=== PATIENT | male | born 1950 | race Caucasian/White ===

== ENCOUNTER 2019-06-08 13:11 | Emergency (ER) | payer MEDICARE, OTHER ==
[~2019-06-08] VITALS: Ht 170.2 cm; Wt 122.5 kg
[~2019-06-08 13:11] MED LIST: ATOR20 PO; CIPR500 PO; CODBUTACEC; MIRT30 PO; TAMS.4ER PO; TOPI50 PO; VERA240ER PO; [UNRECOGNIZED DRUG - REMARK]
[2019-06-08 14:09] LABS: BASOPHILS ABSOLUTE AUTO 0.03 K/mm3 (0.00-0.23); BASOPHILS PERCENT AUTO 0 % (0-2); EOSINOPHILS PERCENT AUTO 0 % (0-6); Hematocrit 46.2 % (37.0-53.0); Hemoglobin 15.4 g/dL (13.5-17.5); IMMATURE GRAN ABSOLUTE AUTO 0.02 K/mm3 (0.00-0.10); IMMATURE GRAN PERCENT AUTO 0 % (0-1); LYMPHOCYTES ABSOLUTE AUTO 0.81 K/mm3 (0.84-5.20); LYMPHOCYTES PERCENT AUTO 12 % (21-46); MONOCYTES ABSOLUTE AUTO 0.18 K/mm3 (0.16-1.47); MONOCYTES PERCENT AUTO 3 % (4-13); Mean Corpuscular HGB 31.6 pg (26.0-34.0); Mean Corpuscular HGB Conc 33.3 g/dL (31.5-36.5); Mean Corpuscular Volume 95 fL (80-100); Mean Platelet Volume 9.7 fL (9.1-12.4); NEUTROPHILS ABSOLUTE AUTO 5.81 K/mm3 (1.96-9.15); NEUTROPHILS PERCENT AUTO 85 % (41-73); Platelet Count 250 K/mm3 (150-400); RDW Coefficient Variation 13.1 % (11.7-14.2); RDW Standard Deviation 45.8 fL (35.1-46.3); Red Blood Cell Count 4.88 M/mm3 (4.30-5.90); White Blood Cell Count 6.85 K/mm3 (4.00-11.30)
[2019-06-08 14:21] LABS: Alanine Aminotransfer (ALT/SGP 22 U/L (12-78); Albumin, Blood 3.9 g/dL (3.4-5.0); Alk Phos 79 U/L (50-136); Anion Gap 7 mmol/L (6-16); Aspartate Aminotrans (AST/SGOT 14 U/L (12-37); Bilirubin, Total 0.3 mg/dL (0.1-1.0); Blood Urea Nitrogen 14 mg/dL (8-24); Bun/Creatinine Ratio 20.7 (12.0-20.0); CO2, Blood 26 mmol/L (21-32); Calcium, Blood 8.7 mg/dL (8.5-10.1); Chloride, Blood 105 mmol/L (98-108); Creatinine, Blood 0.68 mg/dL (0.60-1.20); Globulin, Blood 3.8 g/dL (2.2-4.0); Glomerular Filtration Rate >60 (60-); Glucose, Blood 141 mg/dL (70-99); Potassium, Blood 3.8 mmol/L (3.5-5.5); Sodium, Blood 138 mmol/L (136-145); Total Protein, Blood 7.7 g/dL (6.4-8.2)
[2019-06-08] MEDS ORDERED: LEVO-T150 MCG PO (14:36)
[2019-06-08] MEDS ORDERED: LEVSOD25 PO (14:36)
[2019-06-08] MEDS ORDERED: Percocet 5-3251 EACH PO (17:43)
[2019-06-08] MEDS ORDERED: Zofran4 MG PO (17:43)
== END 2019-06-08 17:58 | disposition home or self-care (01) ==
LOC: ER 13:11
PROVIDERS: Physician Assistant
DX: G44.209 Tension-type headache, unspecified, not intractable (principal); F43.9 Reaction to severe stress, unspecified; Z88.5 Allergy status to narcotic agent; Z79.899 Other long term (current) drug therapy
CPT/HCPCS: 70450; 80053; 85025; 96361; 96374; 96375; 96376; 99284-25; J1170; J1200; J1885; J2765; J3010; J7030

== ENCOUNTER 2019-06-15 19:37 | Emergency (ER) | payer MEDICARE, OTHER ==
[~2019-06-15] VITALS: Ht 177.8 cm; Wt 158.8 kg
[~2019-06-15 19:37] MED LIST changes: +LEVO-T150 MCG PO; +LEVSOD25 PO; +Percocet 5-3251 EACH PO; +Zofran4 MG PO
[2019-06-15 20:32] LABS: BASOPHILS ABSOLUTE AUTO 0.04 K/mm3 (0.00-0.23); BASOPHILS PERCENT AUTO 1 % (0-2); EOSINOPHILS ABSOLUTE AUTO 0.14 K/mm3 (0.00-0.68); EOSINOPHILS PERCENT AUTO 2 % (0-6); Hematocrit 45.7 % (37.0-53.0); Hemoglobin 15.4 g/dL (13.5-17.5); IMMATURE GRAN ABSOLUTE AUTO 0.02 K/mm3 (0.00-0.10); IMMATURE GRAN PERCENT AUTO 0 % (0-1); LYMPHOCYTES PERCENT AUTO 23 % (21-46); MONOCYTES ABSOLUTE AUTO 0.59 K/mm3 (0.16-1.47); MONOCYTES PERCENT AUTO 8 % (4-13); Mean Corpuscular HGB 31.8 pg (26.0-34.0); Mean Corpuscular HGB Conc 33.7 g/dL (31.5-36.5); Mean Corpuscular Volume 94 fL (80-100); Mean Platelet Volume 9.4 fL (9.1-12.4); NEUTROPHILS ABSOLUTE AUTO 5.06 K/mm3 (1.96-9.15); NEUTROPHILS PERCENT AUTO 67 % (41-73); Platelet Count 238 K/mm3 (150-400); RDW Coefficient Variation 12.9 % (11.7-14.2); RDW Standard Deviation 45.1 fL (35.1-46.3); Red Blood Cell Count 4.84 M/mm3 (4.30-5.90); White Blood Cell Count 7.55 K/mm3 (4.00-11.30)
[2019-06-15 20:43] LABS: Anion Gap 5 mmol/L (6-16); Blood Urea Nitrogen 12 mg/dL (8-24); Bun/Creatinine Ratio 18.8 (12.0-20.0); CO2, Blood 28 mmol/L (21-32); Calcium, Blood 8.9 mg/dL (8.5-10.1); Chloride, Blood 105 mmol/L (98-108); Creatinine, Blood 0.64 mg/dL (0.60-1.20); Glomerular Filtration Rate >60 (60-); Glucose, Blood 115 mg/dL (70-99); Potassium, Blood 3.5 mmol/L (3.5-5.5); Sodium, Blood 138 mmol/L (136-145)
[2019-06-15 21:18] LABS: C-REACTIVE PROTEIN, EXT RANGE <0.290 mg/dL (0.000-0.300)
== END 2019-06-15 23:20 | disposition home or self-care (01) ==
LOC: ER 19:37
PROVIDERS: Emergency Medicine
DX: R51 Headache (principal); Z88.5 Allergy status to narcotic agent; Z79.899 Other long term (current) drug therapy
CPT/HCPCS: 36415; 80048; 85025; 85651; 86140; 96374; 96375; 99284-25; J1100; J1200; J1885; J2765; J3010

== ENCOUNTER 2020-11-06 16:29 | Observation (INO) | payer MEDICARE ==
[~2020-11-06] VITALS: Ht 170.2 cm; Wt 116.4 kg
[~2020-11-06 16:29] MED LIST changes: -ATOR20 PO; +ATOR40TA PO
[2020-11-06 17:25] LABS: BASOPHILS ABSOLUTE AUTO 0.04 K/mm3 (0.00-0.23); BASOPHILS PERCENT AUTO 1 % (0-2); EOSINOPHILS ABSOLUTE AUTO 0.04 K/mm3 (0.00-0.68); EOSINOPHILS PERCENT AUTO 1 % (0-6); Hemoglobin 14.9 g/dL (13.5-17.5); IMMATURE GRAN ABSOLUTE AUTO 0.03 K/mm3 (0.00-0.10); IMMATURE GRAN PERCENT AUTO 1 % (0-1); LYMPHOCYTES PERCENT AUTO 27 % (21-46); MONOCYTES ABSOLUTE AUTO 0.37 K/mm3 (0.16-1.47); MONOCYTES PERCENT AUTO 6 % (4-13); Mean Corpuscular HGB 30.9 pg (26.0-34.0); Mean Corpuscular HGB Conc 33.1 g/dL (31.5-36.5); Mean Corpuscular Volume 93 fL (80-100); NEUTROPHILS ABSOLUTE AUTO 4.18 K/mm3 (1.96-9.15); NEUTROPHILS PERCENT AUTO 66 % (41-73); Platelet Count 233 K/mm3 (150-400); RDW Coefficient Variation 12.9 % (11.7-14.2); RDW Standard Deviation 44.4 fL (35.1-46.3); Red Blood Cell Count 4.82 M/mm3 (4.30-5.90); White Blood Cell Count 6.36 K/mm3 (4.00-11.30)
[2020-11-06 17:43] LABS: Ethanol (Alcohol), Blood, Med <3 mg/dL
[2020-11-06 17:44] LABS: Alanine Aminotransfer (ALT/SGP 27 U/L (12-78); Albumin, Blood 4.1 g/dL (3.4-5.0); Albumin/Globulin Ratio 1.2 (0.8-1.8); Alk Phos 71 U/L (50-136); Anion Gap 7 mmol/L (6-16); Aspartate Aminotrans (AST/SGOT 20 U/L (12-37); Bilirubin, Total 0.5 mg/dL (0.1-1.0); Blood Urea Nitrogen 14 mg/dL (8-24); Bun/Creatinine Ratio 21.8 (12.0-20.0); CO2, Blood 26 mmol/L (21-32); Calcium, Blood 8.7 mg/dL (8.5-10.1); Chloride, Blood 106 mmol/L (98-108); Creatinine, Blood 0.64 mg/dL (0.60-1.20); Globulin, Blood 3.3 g/dL (2.2-4.0); Glomerular Filtration Rate >60 (60-); Glucose, Blood 120 mg/dL (70-99); Potassium, Blood 3.8 mmol/L (3.5-5.5); Sodium, Blood 139 mmol/L (136-145); Total Protein, Blood 7.4 g/dL (6.4-8.2)
[2020-11-06 21:08] LABS: Source, Urine Catheter
[2020-11-06 21:09] LABS: Bilirubin, Urine Neg (Neg); Blood, Urine 1+ (Neg); Glucose Qualitative, Urine Neg (Neg); Ketones, Urine 2+ (Neg); Leukocyte Esterase, Urine Neg (Neg); Nitrite, Urine Neg (Neg); Protein, Urine Neg (Neg); Specific Gravity, Urine 1.015 (1.003-1.022); Urobilinogen, Urine NORM (Normal)
[2020-11-06 21:15] LABS: Appearance, Urine Hazy (Clear); Color, Urine Yellow (P-Yellow)
[2020-11-06 21:16] LABS: Amorphous Heavy (0-Heavy); Bacteria Not Seen /hpf; Red Blood Cells, Urine Not Seen /hpf (0-2); Squamous Epithelial Cells Not Seen /hpf (Few); White Blood Cells, Urine Not Seen /hpf (0-5)
[2020-11-06 21:20] LABS: U Amphetamine Screen Not Detected; U Barbituate Screen DETECTED; U Benzodiazapine Screen Not Detected; U Buprenorphine Screen Not Detected; U Cannabinoids Screen Not Detected; U Cocaine Screen Not Detected; U Methadone Screen Not Detected; U Methamphetamine Screen Not Detected; U Opiates Screen DETECTED; U Oxycodone Screen Not Detected; U Phencyclidine Screen Not Detected; U Propoxyphene Screen Not Detected
[2020-11-06 21:49] LABS: Influenza A, PCR NEGATIVE (NEGATIVE); Influenza B, PCR NEGATIVE (NEGATIVE); Resp Syncytial Virus, PCR NEGATIVE (NEGATIVE); SARS-Cov-2 (COVID-19) PCR, MMC NEGATIVE (NEGATIVE)
--- NOTE | 2020-11-07 05:16 | NUR ---
SHIFT SUMMARY: FARHAT WAS ADMITTED LAST NIGHT FOR DIZZINESS AND INTRACTABLE NAUSEA. ARRIVED TO THE FLOOR VIA GURNEY, TRANSFERED USING SLIDER SHEET. HE HAS TO URINATE AND INSISTED ON STANDING AT BEDSIDE FOR URINAL. VERY DIZZY UPON MOVEMENT, SWAYED BACK AND FORTH. THEN HE LAID BACK DOWN. LIVES ALONE HE LOST HIS LAST YEAR. AOX3 BUT DOES NOT KNOW DATE AND YEAR. HE WAS ABLE TO GIVE HISTORY BUT UNABLE TO PROVIDE MEDICATION LIST. WILL NEED TO BE VERIFIED TODAY. LUNG SOUNDS WERE CLEAR. ANSWERED ALL QUESTIONS TO THE BEST OF HIS KNOWLEDGE. FOLLOWS DIRECTION. STATES HE HAS HARD TIME CONCENTRATING WHEN HIS HEAD IS SO DIZZY. DENIES ANY VISION CHANGES, CAST SHELL GRINDER ARE EQUAL. NEURO CHECKS GOOD. VOIDED 700 YELLOW URINE/ NO SKIN BREAKDOWN OR RASHES. VS WNL. NEW ORDERS COMMING IN, WILL START IVF, GIVE ATRIVERT AND CONTINUE TO MONITOR TILL DAY SHIFT ARRIVES. BED ALARM IS ON.
[2020-11-07 05:39] LABS: BASOPHILS ABSOLUTE AUTO 0.05 K/mm3 (0.00-0.23); BASOPHILS PERCENT AUTO 1 % (0-2); EOSINOPHILS ABSOLUTE AUTO 0.08 K/mm3 (0.00-0.68); EOSINOPHILS PERCENT AUTO 1 % (0-6); Hematocrit 41.3 % (37.0-53.0); Hemoglobin 13.8 g/dL (13.5-17.5); IMMATURE GRAN ABSOLUTE AUTO 0.01 K/mm3 (0.00-0.10); IMMATURE GRAN PERCENT AUTO 0 % (0-1); LYMPHOCYTES ABSOLUTE AUTO 2.09 K/mm3 (0.84-5.20); LYMPHOCYTES PERCENT AUTO 32 % (21-46); MONOCYTES ABSOLUTE AUTO 0.44 K/mm3 (0.16-1.47); MONOCYTES PERCENT AUTO 7 % (4-13); Mean Corpuscular HGB 31.2 pg (26.0-34.0); Mean Corpuscular HGB Conc 33.4 g/dL (31.5-36.5); Mean Corpuscular Volume 93 fL (80-100); Mean Platelet Volume 9.6 fL (9.1-12.4); NEUTROPHILS ABSOLUTE AUTO 3.94 K/mm3 (1.96-9.15); NEUTROPHILS PERCENT AUTO 60 % (41-73); Platelet Count 221 K/mm3 (150-400); RDW Standard Deviation 45.1 fL (35.1-46.3); Red Blood Cell Count 4.43 M/mm3 (4.30-5.90); White Blood Cell Count 6.61 K/mm3 (4.00-11.30)
[2020-11-07 06:22] LABS: Alanine Aminotransfer (ALT/SGP 19 U/L (12-78); Albumin, Blood 3.4 g/dL (3.4-5.0); Albumin/Globulin Ratio 1.1 (0.8-1.8); Alk Phos 60 U/L (50-136); Anion Gap 5 mmol/L (6-16); Aspartate Aminotrans (AST/SGOT 12 U/L (12-37); Bilirubin, Total 0.5 mg/dL (0.1-1.0); Blood Urea Nitrogen 11 mg/dL (8-24); Bun/Creatinine Ratio 16.9 (12.0-20.0); CO2, Blood 27 mmol/L (21-32); Calcium, Blood 7.9 mg/dL (8.5-10.1); Chloride, Blood 112 mmol/L (98-108); Creatinine, Blood 0.65 mg/dL (0.60-1.20); Free Thyroxine 0.95 ng/dL (0.70-1.60); Glomerular Filtration Rate >60 (60-); Glucose, Blood 106 mg/dL (70-99); Potassium, Blood 3.4 mmol/L (3.5-5.5); Sodium, Blood 144 mmol/L (136-145); Total Protein, Blood 6.4 g/dL (6.4-8.2)
--- NOTE | 2020-11-07 18:04 | NUR ---
SHIFT SUMMARY PATIENT MEDICATED X2 FOR MIGRAINE PAIN, AND SCHEDULED FOR DIZZINESS. DENIES NAUSEA AND SHORTNESS OF BREATH. UP SBA TO BATHROMM THIS AFTERNOON. REPORTS DIZZINESS IS SOMEWHAT IMPROVED. SON VISITED IN AFTERNOON. EATING AND DRINKING WELL.
[2020-11-07] MEDS ORDERED: FINA5 PO (23:20)
--- NOTE | 2020-11-08 06:34 | NUR ---
SHIFT SUMMARY PT IS A 70 Y/0 MALE, ADMITTED FOR DIZZINESS. A&O X 4. PT IS STILL REPORTING DIZZINESS ON SITTING/STANDING, BUT SAYS HE FEELS "BETTER THAN WHEN I CAME IN". PT IS ABLE TO AMBULATE SBA TO THE BATHROOM. NO C/O NAUSEA, PAIN OR SOB. VITAL SIGNS STABLE. NO ACUTE CHANGES IN PT CONDITION NOTED DURING THE NIGHT. WILL CONTINUE TO MONITOR AND TREAT PER EMAR UNTIL HAND OFF TO DAY SHIFT RN.
[2020-11-08] MEDS ORDERED: CODEINE PO (11:26)
[2020-11-08] MEDS ORDERED: FIORINAL PO (11:26)
[2020-11-08] MEDS ORDERED: [UNRECOGNIZED DRUG - CODE] PO (11:29)
--- NOTE | 2020-11-08 16:39 | NUR ---
SHIFT SUMMARY PATIENT MEDICATED X2 FOR MIGRAINE PAIN, SCHEDULED FOR DIZZINESS, AND ONCE WITH NOW DOSE OF REGLAN. DENIES NAUSEA AND SHORTNESS OF BREATH. UP SBA TO BR. EATING AND DRINKING WELL. REPORTS IMPROVEMENT OF DIZZINESS AND MIGRAINE SYMPTOMS WHEN COMPARED WITH YESTERDAY.
--- NOTE | 2020-11-09 06:17 | NUR ---
SHIFT SUMMARY PT IS A 70 Y/O MALE, ADMITTED FOR DIZZINESS AND INTRACTABLE NAUSEA, WITH A HX OF MIGRAINES. AT HS PT REPORTED THAT HIS HEADACHE WAS "BETTER THAN IT WAS", AT A 4/10. HE WAS MEDICATED FOR BOTH DIZZINESS WITH MECLIZINE AND FOR HIS TEJADA WITH PRN FIORICET THIS AM. NO C/O NAUSEA OR SOB. VITAL SIGNS STABLE. NO OTHER ACUTE CHANGES IN PT CONDITION NOTED DURING THE NIGHT. WILL CONTINUE TO MONITOR AND TREAT PER EMAR UNTIL HAND OFF TO DAY SHIFT RN.
[2020-11-09] MEDS ORDERED: BUTALB-CAFF-AC1 EACH PO (11:13)
[2020-11-09] MEDS ORDERED: MECL25 PO (11:14)
[2020-11-09] MEDS ORDERED: SUMA25 PO (11:15)
--- NOTE | 2020-11-09 14:48 | NUR ---
PATIENT DISCHARGE: PATIENT DISCHARGED TO HOME THIS SHIFT. MEDICATION RECONCILIATION COMPLETED; MED LIST FAXED TO [facility]. DISCHARGE EDUCATION COMPLETED WITH PATIENT. PATIENT TRANSPORTED TO EXIT BY [facility] WITH WHEELCHAIR AT 1415. PATIENT DEPARTED [facility] VIA PRIVATE AUTO.
== END 2020-11-09 14:19 | disposition home or self-care (01) ==
LOC: ER 16:29 → MEDS 16:30 → ENPENDDIS 11-09 11:14 → MEDS 11-09 14:19
PROVIDERS: Emergency Medicine; ADMIT Internal Medicine
DX: G43.909 Migraine, unspecified, not intractable, without status migrainosus (principal); I10 Essential (primary) hypertension; E78.5 Hyperlipidemia, unspecified; N40.0 Benign prostatic hyperplasia without lower urinary tract symptoms; E03.9 Hypothyroidism, unspecified; G47.00 Insomnia, unspecified; Z88.5 Allergy status to narcotic agent; Z20.822 Contact with and (suspected) exposure to COVID-19
CPT/HCPCS: 0241U; 36415; 70450; 70496; 70498; 70551; 80053; 81001; 82947; 84439; 84443; 84484; 85025; 93005; 93010; 96361; 96365; 96372; 96375; 96376; 99285-25; A9270; G0378; G0480; J1650; J1885; J2765; J3475; J7030; Q9967

== ENCOUNTER 2022-08-10 08:26 | Day surgery (SDC) | payer MEDICARE ==
[~2022-08-10] VITALS: Ht 172 cm; Wt 113.0 kg
[~2022-08-10 08:26] MED LIST changes: +BUTALB-CAFF-AC1 EACH PO; +CODEINE PO; +FINA5 PO; +FIORINAL PO; +MECL25 PO; +SUMA25 PO; +[UNRECOGNIZED DRUG - CODE] PO
--- NOTE | 2022-08-10 10:31 | NUR ---
Ambulatory in Day Surgery History, Chart, Medications and Allergies reviewed before start of procedure.Patient confirms NPO status and agrees with scheduled surgery. PT WITH HR READING INTERMITTENTLY IN 30'S ON SPO2. PLACED ONTO TELE. HR IN 80'S WITH INTERMITTENT pvc'S DECREASING HR TO 60's. RYTHYM STRIPS RAN. DR. ESTRADA NOTIFIED. NO NEW ORDERS RECEIVED.
--- NOTE | 2022-08-10 14:15 | NUR ---
Patient up to Ambulate independently TO USE RESTROOM. Gait steady. Discharge instructions reviewed with patient. Patient verbalizes understanding. Copy given to patient to take home. Lungs clear T/O to Auscultation. Patient States Post-Procedure ride home has been arranged. Discharged via wheelchair to private car for ride home.
== END 2022-08-10 22:58 | disposition home or self-care (01) ==
LOC: ORSCMMR 08:26 → ORD 10:00 → ORSCMMR 22:58
PROVIDERS: Surgery
PROC: 0YU60JZ Supplement Left Inguinal Region with Synthetic Substitute, Open Approach (ICD-10-PCS; principal; 2022-08-10 10:00)
DX: K40.30 Unilateral inguinal hernia, with obstruction, without gangrene, not specified as recurrent (principal); I10 Essential (primary) hypertension; E78.5 Hyperlipidemia, unspecified; G47.33 Obstructive sleep apnea (adult) (pediatric); E03.9 Hypothyroidism, unspecified; E66.9 Obesity, unspecified; Z68.38 Body mass index [BMI] 38.0-38.9, adult; Z79.899 Other long term (current) drug therapy
CPT/HCPCS: A9270; C1781; J0690; J1100; J2405; J2704; J2795; J3010; J7120

== ENCOUNTER 2025-05-13 06:02 | Day surgery (SDC) | payer MEDICARE ==
[~2025-05-13] VITALS: Ht 170.2 cm; Wt 115.4 kg
[2025-05-13] MEDS ORDERED: CeFAZolin Sodium 2,000 MG VIAL ONE (06:19)
[2025-05-13] MEDS ORDERED: metoprolol succinate (06:28)
[2025-05-13] MEDS ORDERED: HYDROCODONE-AC1 EA19 PO (06:39)
[2025-05-13] MEDS ORDERED: FentaNYL Citrate 50 MCG/ML 2 ML Injection ONE (07:13)
[2025-05-13] MEDS ORDERED: Bupivacaine HCl 0.25% 50 ML Vial (NON CHARGE) INJ ONE (07:46)
[2025-05-13] MEDS ORDERED: Ondansetron HCl 2 MG / ML 2ML Vial ONE (07:49)
[2025-05-13] MEDS ORDERED: Metoclopramide HCl 5MG / ML 2ML Vial ONE (07:49)
[2025-05-13] MEDS ORDERED: Sugammadex Sodium 200 MG/2ML SDV (100 MG/ML) ONE (08:25)
[2025-05-13 09:14] VITALS: BP 144/82
--- NOTE | 2025-05-13 10:18 | NUR ---
05/13/25 [id number] Kenny Bhatti PT DISCHARGED WITH NO COMPLAINT OF PAIN OR NAUSEA, TOLERATING FLUIDS
== END 2025-05-13 10:19 | disposition home or self-care (01) ==
LOC: ORSCSDS 06:02
PROVIDERS: Urology
PROC: 0VB70ZZ Excision of Left Tunica Vaginalis, Open Approach (ICD-10-PCS; principal; 2025-05-13 07:30)
DX: N43.0 Encysted hydrocele (principal); N40.0 Benign prostatic hyperplasia without lower urinary tract symptoms; I10 Essential (primary) hypertension; E03.9 Hypothyroidism, unspecified; G47.33 Obstructive sleep apnea (adult) (pediatric); Z79.899 Other long term (current) drug therapy
CPT/HCPCS: 88302; J0690; J2003; J2405; J2704; J2765; J3010; J7120